=== PATIENT | male | born 1995 | race Caucasian/White ===

== ENCOUNTER 2017-11-16 17:13 | Emergency (ER) | payer SELFPAY ==
[~2017-11-16] VITALS: Ht 182.9 cm; Wt 81.6 kg
[~2017-11-16 17:13] MED LIST: HYDR1TAB PO; KETO10TA77 PO; ONDA-42 SL; TMSL.4C PO
[2017-11-16] MEDS ORDERED: TETANUS,DIPTH,PERTUSS P/F (BOOSTRIX) 0.5 ML VIAL IM STA (18:07)
[2017-11-16] MEDS ORDERED: LACTATED RINGERS 1,000 ML IV ONE (18:07)
[2017-11-16] MEDS ORDERED: methylPREDNISolone 125 MG (Solu-MEDROL) VIAL IVP ONE (18:15)
[2017-11-16] MEDS ORDERED: CLINDAMYCIN INJECTION 900 MG in NS (IVPB) 50 ML IV ONE (18:15)
[2017-11-16 18:28] LABS: BASOPHILS # (AUTO) 0.1 10^3/uL (0.0-0.1); BASOPHILS % (AUTO) 1 % (0-10); EOSINOPHILS # (AUTO) 0.7 10^3/uL (0.0-0.3); EOSINOPHILS % (AUTO) 7 % (0-10); LYMPHOCYTES # (AUTO) 1.9 X 10^3 (1.0-4.0); LYMPHOCYTES % (AUTO) 20 % (12-44); MEAN CORPUSCULAR HEMOGLOBIN 32 PG (25-34); MEAN CORPUSCULAR HGB CONC 35 G/DL (32-36); MEAN CORPUSCULAR VOLUME 92 FL (80-99); MEAN PLATELET VOLUME 10.2 FL (7.4-10.4); MONOCYTES # (AUTO) 1.6 X 10^3 (0.0-1.0); MONOCYTES % (AUTO) 16 % (0-12); NEUTROPHILS # (AUTO) 5.6 X 10^3 (1.8-7.8); NEUTROPHILS % (AUTO) 57 % (42-75); PLATELET COUNT 267 10^3/uL (130-400); RED BLOOD COUNT 4.22 10^6/uL (4.35-5.85); RED CELL DISTRIBUTION WIDTH 12.2 % (10.0-14.5); WHITE BLOOD COUNT 9.9 10^3/uL (4.3-11.0)
[2017-11-16 18:47] LABS: ALANINE AMINOTRANSFERASE 13 U/L (0-55); ALBUMIN 3.8 GM/DL (3.2-4.5); ANION GAP 9 MMOL/L (5-14); ASPARTATE AMINO TRANSFERASE 18 U/L (5-34); BILIRUBIN,TOTAL 0.7 MG/DL (0.1-1.0); BLOOD UREA NITROGEN 10 MG/DL (7-18); BUN/CREATININE RATIO 13; CALCIUM 8.7 MG/DL (8.5-10.1); CARBON DIOXIDE 25 MMOL/L (21-32); CHLORIDE 107 MMOL/L (98-107); CREATININE SERUM 0.78 MG/DL (0.60-1.30); GFR ESTIMATED > 60; GLUCOSE 104 MG/DL (70-105); POTASSIUM 3.9 MMOL/L (3.6-5.0); SODIUM 141 MMOL/L (135-145); TOTAL PROTEIN 6.7 GM/DL (6.4-8.2); hs C REACTIVE PROTEIN 1.81 MG/DL (0.00-0.50)
[2017-11-16 18:48] LABS: ERYTHROCYTE SEDIMENTATION RATE 6 MM/HR (0-15)
--- NOTE | 2017-11-16 19:15 | Diagnostic Imaging Report ---
INDICATION: Possible spider bite. EXAMINATION: Right lower extremity ultrasound. FINDINGS: No fluid collection or abscess. No identifiable foreign body. IMPRESSION: Negative. Dictated by: Dictated on workstation # [id number]
--- NOTE | 2017-11-16 19:20 | ED Integumentary General ---
General Chief Complaint: Skin/Wound Problems Stated Complaint: SPIDER BITE Nursing Triage Note: PT REPORTS AREA TO POSTERIOR R CALF X 3 DAYS WITH WORSENING REDNESS, WARMTH AND SWELLING TODAY. Source: patient History of Present Illness Time seen by provider: 18:00 Initial Comments SENT HERE FROM [facility] C/O AREA OF REDNESS AND TENDERNESS AND SWELLING TO RIGHT CALF FOR A FEW DAYS, AND IS GETTING WORSE NO FEVER NO DRAINAGE NO STREAKS NO HISTORY OF SIMILAR NO KNOWN INJURY, BUT PT HAS MULTIPLE SORES TO LOWER LEGS BILATERALLY, BUT WORSE ON RIGHT. PCP: FAMILY GOES TO [facility] Allergies and Home Medications Allergies Coded Allergies: No Known Drug Allergies (Unverified , 05/06/14) Home Medications Ketorolac Tromethamine 10 Mg Tablet, 10 MG PO Q6H, #20 Prescribed by: MIGUEL ÁNGEL WAGNER on 05/01/152117 Mupirocin Calcium 15 Gm Cream..g., 15 GM TP BID, #22 Prescribed by: MIGUEL ÁNGEL WAGNER on 11/16/171935 Naproxen 500 Mg Tablet, 500 MG PO BID, #20 Prescribed by: MIGUEL ÁNGEL WAGNER on 11/16/171934 Ondansetron Hcl 4 Mg Tab, 4 MG SL Q4H, #5 FOR NAUSEA AND VOMITING Prescribed by: MIGUEL ÁNGEL WAGNER on 05/01/152117 Sulfamethoxazole/Trimethoprim 1 Each Tablet, 2 EACH PO BID, #40 Prescribed by: MIGUEL ÁNGEL WAGNER on 11/16/171934 Tamsulosin Hcl 0.4 Mg Cap, 0.4 MG PO DAILY, #10 Prescribed by: MIGUEL ÁNGEL WAGNER on 05/01/152117 Constitutional: see HPI Respiratory: no symptoms reported Cardiovascular: no symptoms reported Genitourinary: no symptoms reported Musculoskeletal: see HPI Skin: see HPI Psychiatric/Neurological: No Symptoms Reported, Denies Numbness, Denies Paresthesia, Denies Tingling, Denies Weakness Endocrine: No Symptoms Reported Hematologic/Lymphatic: No Symptoms Reported Past Vyhckit-Nfnufn-Qidfsh Hx Patient Social History Alcohol Use: Occasionally Uses 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, 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, THC Smoking Status: Current Everyday Smoker (1/2-1 PPD) Type Used: Cigarettes 2nd Hand Smoke Exposure: No Recent Foreign Travel: No Contact w/Someone Who Travel: No Recent Infectious Disease Expo: No Recent Hopitalizations: No Physical Abuse: No Sexual Abuse: No Immunizations Up To Date Tetanus Booster (TDap): Unknown Surgeries History of Surgeries: No Respiratory History of Respiratory Disorde: No Cardiovascular History of Cardiac Disorders: No Neurological History of Neurological Disord: Yes Neurological Disorders: Concussion Reproductive System Hx Reproductive Disorders: No Sexually Transmitted Disease: No Genitourinary History of Genitourinary Disor: No Gastrointestinal History of Gastrointestinal Di: No Musculoskeletal History of Musculoskeletal Dis: No Endocrine History of Endocrine Disorders: No HEENT History of HEENT Disorders: No Cancer History of Cancer: No Psychosocial History of Psychiatric Problem: No Suicide Risk Score: 0 Integumentary History of Skin or Integumenta: No Blood Transfusions History of Blood Disorders: No Physical Exam Vital Signs Vital Sign - Last 12Hours 11/16/17 17:56 Temp 99.2 Pulse 87 Resp 16 B/P (MAP) 123/78 (93) Pulse Ox 98 O2 Delivery Room Air Capillary Refill : Less Than 3 Seconds General Appearance: WD/WN, no apparent distress, other (DIRTY, VERY MALODOROUS) Cardiovascular: normal peripheral pulses, regular rate, rhythm, no murmur Respiratory: normal breath sounds Extremities: no pedal edema, normal capillary refill, other (RIGHT LOWER LEG WITH MULTIPLE SORES/SCABBED WOUNDS--SEVERAL WITH MILD SURROUNDING ERYTHEMA/ INDURATION. HAS 15 X 15 CM AREA OF ERYTHEMA, WARMTH, INDURATION, SWELLING AND MARKED TENDERNESS TO RIGHT CALF. NO AREAS OF FLUCTUANCE, NO DRAINAGE, NO STREAKS. HAS MULTIPLE TINY PUSTULES TO AREA--ALL APPEAR TO BE AT BASE OF HAIR FOLLICLES. 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 ) Progress/Results/Core Measures Results/Orders Lab Results Laboratory Tests Test 11/16/17 18:15 Range/Units White Blood Count 9.9 4.3-11.0 10^3/uL Red Blood Count 4.22 L 4.35-5.85 10^6/uL Hemoglobin 13.5 13.3-17.7 G/DL Hematocrit 39 L 40-54 % Mean Corpuscular Volume 92 80-99 FL Mean Corpuscular Hemoglobin 32 25-34 PG Mean Corpuscular Hemoglobin Concent 35 32-36 G/DL Red Cell Distribution Width 12.2 10.0-14.5 % Platelet Count 267 130-400 10^3/uL Mean Platelet Volume 10.2 7.4-10.4 FL Neutrophils (%) (Auto) 57 42-75 % Lymphocytes (%) (Auto) 20 12-44 % Monocytes (%) (Auto) 16 H 0-12 % Eosinophils (%) (Auto) 7 0-10 % Basophils (%) (Auto) 1 0-10 % Neutrophils # (Auto) 5.6 1.8-7.8 X 10^3 Lymphocytes # (Auto) 1.9 1.0-4.0 X 10^3 Monocytes # (Auto) 1.6 H 0.0-1.0 X 10^3 Eosinophils # (Auto) 0.7 H 0.0-0.3 10^3/uL Basophils # (Auto) 0.1 0.0-0.1 10^3/uL Erythrocyte Sedimentation Rate 6 0-15 MM/HR Sodium Level 141 135-145 MMOL/L Potassium Level 3.9 3.6-5.0 MMOL/L Chloride Level 107 98-107 MMOL/L Carbon Dioxide Level 25 21-32 MMOL/L Anion Gap 9 5-14 MMOL/L Blood Urea Nitrogen 10 7-18 MG/DL Creatinine 0.78 0.60-1.30 MG/DL Estimat Glomerular Filtration Rate > 60 BUN/Creatinine Ratio 13 Glucose Level 104 70-105 MG/DL Lactic Acid Level 1.23 0.50-2.00 MMOL/L Calcium Level 8.7 8.5-10.1 MG/DL Total Bilirubin 0.7 0.1-1.0 MG/DL Aspartate Amino Transf (AST/SGOT) 18 5-34 U/L Alanine Aminotransferase (ALT/SGPT) 13 0-55 U/L Alkaline Phosphatase 93 40-136 U/L C-Reactive Protein High Sensitivity 1.81 H 0.00-0.50 MG/DL Total Protein 6.7 6.4-8.2 GM/DL Albumin 3.8 3.2-4.5 GM/DL My Orders Orders - BERNARD,MIGUEL ÁNGEL K DO Saline Lock/Iv-Start (11/16/17 18:07) Cbc With Automated Diff (11/16/17 18:07) Comprehensive Metabolic Panel (11/16/17 18:07) Hs C Reactive Protein (11/16/17 18:07) Erythrocyte Sedimentation Rate (11/16/17 18:07) Lactic Acid Analyzer (11/16/17 18:07) Blood Culture (11/16/17 18:07) Us Right Low Ext Nonvasc 00244 (11/16/17 18:07) Saline Lock/Iv-Start (11/16/17 18:07) Lactated Ringers (Lr 1000 Ml Iv Solution (11/16/17 18:07) Dipht,Pertuss(Acell),Tet Adult (Boostrix (11/16/17 18:07) Clindamycin Injection (Cleocin Injection (11/16/17 18:15) Methylprednisolone Sod Succ (Solu-Medrol (11/16/17 18:15) Wound Culture (11/16/17 19:26) Rx-Mupirocin 2% Oint (Rx-Bactroban) (11/16/17 19:36) Rx-Trimeth/Sulfameth Ds Tab (Rx-Bactrim/ (11/16/17 19:36) Rx-Naproxen (Rx-Naprosyn) (11/16/17 19:36) Wound Dressing-Ed (11/16/17 19:36) Rx-Mupirocin 2% Oint (Rx-Bactroban) (11/16/17 20:07) Rx-Trimeth/Sulfameth Ds Tab (Rx-Bactrim/ (11/16/17 20:07) Rx-Naproxen (Rx-Naprosyn) (11/16/17 20:07) Medications Given in ED Current Medications Medications Dose Ordered Sig/Jeromy Route Start Time Stop Time Status Last Admin Dose Admin Clindamycin Phosphate 900 mg/ Sodium Chloride 56 ml @ 100 mls/hr ONCE ONCE IV 11/16/17 18:15 11/16/17 18:49 DC 11/16/17 19:16 100 MLS/HR Lactated Ringer's 1,000 ml @ 0 mls/hr Q0M ONCE IV 11/16/17 18:07 11/16/17 18:10 DC 11/16/17 18:27 0 MLS/HR Methylprednisolone Sodium Succinate 125 mg ONCE ONCE IVP 11/16/17 18:15 11/16/17 18:16 DC 11/16/17 18:27 125 MG Vital Signs/I&O Vital Sign - Last 12Hours 11/16/17 11/16/17 17:56 20:21 Temp 99.2 99.0 Pulse 87 83 Resp 16 16 B/P (MAP) 123/78 (93) Pulse Ox 98 97 O2 Delivery Room Air Room Air Intake and Output 11/17/17 00:00 Intake Total 1056 ml Balance 1056 ml Blood Pressure Mean: 93 Progress Note : Progress Note FEW PUSTULES RUPTURED WITH 25 G NEEDLE TO OBTAIN CULTURE Diagnostic Imaging Comments ULTRASOUND--NO FLUID COLLECTION, NO ABSCESS, NO FOREIGN BODY--PER RADIOLOGIST REPORT @ 1920 Reviewed: Reviewed by Me Departure Impression Impression: Primary Impression: CELLULITIS RIGHT CALF Additional Impression: SUSPECTED MRSA Disposition: HOME, SELF-CARE Condition: Stable Departure-Patient Inst. Referrals: NO,LOCAL PHYSICIAN (PCP/Family) Primary Care Physician Patient Instructions: Cellulitis (Skin Infection), Adult (DC), Methicillin- Resistant Staphylococcus aureus (MRSA), MRSA (DC) Add. Discharge Instructions: CLEAN AREAS 3 TIMES A DAY WITH ANTIBACTERIAL SOAP AND WATER, APPLY ANTIBIOTIC OINTMENT AND FRESH DRESSING AFTER EACH CLEANING ALTERNATE ICE AND HEAT TO SORE AREA AT 20 MINUTE INTERVALS ELEVATE LEG MUCH POSSIBLE FOLLOW UP WITH [facility] [place] [facility] TOMORROW FOR FURTHER CARE All discharge instructions reviewed with patient and/or family. Voiced understanding. Scripts Mupirocin Calcium (Bactroban) 15 Gm Cream..g. 15 GM TP BID, #22 TUBE Prov: MIGUEL ÁNGEL WAGNER DO 11/16/17 Naproxen (Naproxen) 500 Mg Tablet 500 MG PO BID, #20 TAB Prov: MIGUEL ÁNGEL WAGNER DO 11/16/17 Sulfamethoxazole/Trimethoprim (Bactrim Ds Tablet) 1 Each Tablet 2 EACH PO BID, #40 TAB Prov: MIGUEL ÁNGEL WAGNER DO 11/16/17 MIGUEL ÁNGEL WAGNER DO Nov 16, 2017 19:20
[2017-11-16] MEDS ORDERED: SULF1TAB35 PO (19:35)
[2017-11-16] MEDS ORDERED: NAPR500T4 PO (19:35)
[2017-11-16] MEDS ORDERED: MUPI15CR TP (19:36)
[2017-11-16] MEDS ORDERED: RX-TRIMETH/SULFA. 160-800 MG (BACTRIM DS) TAB PPK#2 PO STA (19:36)
[2017-11-16] MEDS ORDERED: RX-MUPIROCIN (BACTROBAN) 2% OINT 22 GM TUBE TOP STA (19:36)
[2017-11-16] MEDS ORDERED: RX-NAPROXEN (NAPROSYN) 250 MG TAB PPK#4 PO STA (19:36)
[2017-11-16] MEDS ORDERED: RX-NAPROXEN (NAPROSYN) 250 MG TAB PPK#4 PO ONE (20:07)
[2017-11-16] MEDS ORDERED: RX-TRIMETH/SULFA. 160-800 MG (BACTRIM DS) TAB PPK#2 PO ONE (20:07)
[2017-11-16] MEDS ORDERED: RX-MUPIROCIN (BACTROBAN) 2% OINT 22 GM TUBE ONE (20:07)
[2017-11-16 20:21] VITALS: BP 114/68
== END 2017-11-16 20:21 | disposition home or self-care (01) ==
LOC: EDUNIT# 17:13 → ER 17:15
DX: L03.115 Cellulitis of right lower limb (principal); Z23 Encounter for immunization; F17.210 Nicotine dependence, cigarettes, uncomplicated; Z87.821 Personal history of retained foreign body fully removed
CPT/HCPCS: 36415; 76881; 80053; 83605; 85025; 85652; 86141; 87040; 87070; 87186; 87205; 90715

== ENCOUNTER 2017-12-01 22:01 | Emergency (ER) | payer SELFPAY ==
[~2017-12-01] VITALS: Ht 182.9 cm; Wt 81.6 kg
[~2017-12-01 22:01] MED LIST changes: +MUPI15CR TP; +NAPR500T4 PO; +SULF1TAB35 PO
--- OUTSIDE RECORDS SUMMARY | 2017-12-01 22:06 | XMS REPORT | Continuity of Care Document ---
Author Author [facility] Organization [facility] Address Unknown Phone Unavailable Allergies Active Description Code Type Severity Reaction Onset Reported/Identified Relationship to Patient Clinical Status Yes No Known Drug Allergies [id number] Drug Allergy Unknown N/A 05/06/2014 Medications There is no data. Problems Date Dx Coded Attending Type Code Diagnosis Diagnosed By 05/07/2014 EREN CARABALLO APRN Ot 803.20 05/07/2014 EREN CARABALLO APRN Ot E968.9 05/01/2015 MIGUEL ÁNGEL WAGNER DO Ot 593.4 URETERIC OBSTRUCTION NEC 05/01/2015 MIGUEL ÁNGEL WAGNER DO Ot 724.2 LUMBAGO Procedures There is no data. Results Test Result Range Complete blood count (CBC) with automated white blood cell (WBC) differential - 11/16/17 18:15 Blood leukocytes automated count (number/volume) 9.9 10*3/uL 4.3-11.0 Blood erythrocytes automated count (number/volume) 4.22 10*6/uL 4.35-5.85 Venous blood hemoglobin measurement (mass/volume) 13.5 g/dL 13.3-17.7 Blood hematocrit (volume fraction) 39 % 40-54 Automated erythrocyte mean corpuscular volume 92 [foz_us] 80-99 Automated erythrocyte mean corpuscular hemoglobin (mass per erythrocyte) 32 pg 25-34 Automated erythrocyte mean corpuscular hemoglobin concentration measurement ( mass/volume) 35 g/dL 32-36 Automated erythrocyte distribution width ratio 12.2 % 10.0-14.5 Automated blood platelet count (count/volume) 267 10*3/uL 130-400 Automated blood platelet mean volume measurement 10.2 [foz_us] 7.4-10.4 Automated blood neutrophils/100 leukocytes 57 % 42-75 Automated blood lymphocytes/100 leukocytes 20 % 12-44 Blood monocytes/100 leukocytes 16 % 0-12 Automated blood eosinophils/100 leukocytes 7 % 0-10 Automated blood basophils/100 leukocytes 1 % 0-10 Blood neutrophils automated count (number/volume) 5.6 10*3 1.8-7.8 Blood lymphocytes automated count (number/volume) 1.9 10*3 1.0-4.0 Blood monocytes automated count (number/volume) 1.6 10*3 0.0-1.0 Automated eosinophil count 0.7 10*3/uL 0.0-0.3 Automated blood basophil count (count/volume) 0.1 10*3/uL 0.0-0.1 Blood lactic acid measurement (moles/volume) - 11/16/17 18:15 Blood lactic acid measurement (moles/volume) 1.23 mmol/L 0.50-2.00 Comprehensive metabolic panel - 11/16/17 18:15 Serum or plasma sodium measurement (moles/volume) 141 mmol/L 135-145 Serum or plasma potassium measurement (moles/volume) 3.9 mmol/L 3.6-5.0 Serum or plasma chloride measurement (moles/volume) 107 mmol/L 98-107 Carbon dioxide 25 mmol/L 21-32 Serum or plasma anion gap determination (moles/volume) 9 mmol/L 5-14 Serum or plasma urea nitrogen measurement (mass/volume) 10 mg/dL 7-18 Serum or plasma creatinine measurement (mass/volume) 0.78 mg/dL 0.60-1.30 Serum or plasma urea nitrogen/creatinine mass ratio 13 NRG Serum or plasma creatinine measurement with calculation of estimated glomerular filtration rate > NRG Serum or plasma glucose measurement (mass/volume) 104 mg/dL 70-105 Serum or plasma calcium measurement (mass/volume) 8.7 mg/dL 8.5-10.1 Serum or plasma total bilirubin measurement (mass/volume) 0.7 mg/dL 0.1-1.0 Serum or plasma alkaline phosphatase measurement (enzymatic activity/volume) 93 U/L 40-136 Serum or plasma aspartate aminotransferase measurement (enzymatic activity/ volume) 18 U/L 5-34 Serum or plasma alanine aminotransferase measurement (enzymatic activity/volume ) 13 U/L 0-55 Serum or plasma protein measurement (mass/volume) 6.7 g/dL 6.4-8.2 Serum or plasma albumin measurement (mass/volume) 3.8 g/dL 3.2-4.5 Serum or plasma C reactive protein measurement (mass/volume) - 11/16/17 18:15 Serum or plasma C reactive protein measurement (mass/volume) 1.81 mg /dL 0.00-0.50 Erythrocyte sedimentation rate by westergren method - 11/16/17 18:15 Erythrocyte sedimentation rate by westergren method 6 mm 0-15 Bacterial blood culture - 11/16/17 18:15 Bacterial blood culture NG NRG Bacterial blood culture - 11/16/17 18:34 Bacterial blood culture NG NRG Gram stain microscopy - 11/16/17 19:40 GRAM STAIN RESULT FEW GRAM POSITIVE COCCI RESEMBLING STAPH NRG Bacteria identification in wound by culture - 11/16/17 19:40 Bacteria identification in wound by culture [id number] NRG FREE TEXT EXTERNAL SENSITIVITY REPORTED 11/18/17 7:35 NRG QUANTITY OF GROWTH Moderate Growth NRG Bacterial susceptibility panel - 11/16/17 19:40 Oxacillin susceptibility test by minimum inhibitory concentration < = NRG Gentamicin susceptibility test by minimum inhibitory concentration < = NRG Clindamycin susceptibility test by minimum inhibitory concentration R NRG Erythromycin susceptibility test by minimum inhibitory concentration >= NRG Trimethoprim/sulfamethoxazole susceptibility test by minimum inhibitoryconcentration S NRG Vancomycin susceptibility test by minimum inhibitory concentration 1 NRG Levofloxacin susceptibility test by minimum inhibitory concentration <= NRG Rifampin susceptibility test by minimum inhibitory concentration <= NRG Tetracycline susceptibility test by minimum inhibitory concentration <= NRG Encounters ACCT No. Visit Date/Time Discharge Status Pt. Type Provider Facility Loc./Unit Complaint [id number] 11/16/2017 17:15:00 11/16/2017 20:21:00 DIS Emergency MIGUEL ÁNGEL WAGNER DO [facility] ER SPIDER BITE [id number] 05/01/2015 18:36:00 05/01/2015 21:58:00 DIS Emergency MIGUEL ÁNGEL WAGNER DO [facility] ER LOWER R SIDE BACK PAIN [id number] 05/06/2014 21:33:00 05/07/2014 00:01:00 DIS Emergency EREN CARABALLO APRN [facility] ER
[2017-12-01 22:27] LABS: BASOPHILS # (AUTO) 0.1 10^3/uL (0.0-0.1); BASOPHILS % (AUTO) 1 % (0-10); EOSINOPHILS # (AUTO) 0.2 10^3/uL (0.0-0.3); EOSINOPHILS % (AUTO) 3 % (0-10); HEMATOCRIT 42 % (40-54); HEMOGLOBIN 14.6 G/DL (13.3-17.7); LYMPHOCYTES # (AUTO) 1.6 X 10^3 (1.0-4.0); LYMPHOCYTES % (AUTO) 23 % (12-44); MEAN CORPUSCULAR HEMOGLOBIN 31 PG (25-34); MEAN CORPUSCULAR HGB CONC 35 G/DL (32-36); MEAN CORPUSCULAR VOLUME 88 FL (80-99); MEAN PLATELET VOLUME 10.4 FL (7.4-10.4); MONOCYTES % (AUTO) 14 % (0-12); NEUTROPHILS # (AUTO) 4.2 X 10^3 (1.8-7.8); NEUTROPHILS % (AUTO) 60 % (42-75); PLATELET COUNT 220 10^3/uL (130-400); RED BLOOD COUNT 4.74 10^6/uL (4.35-5.85); RED CELL DISTRIBUTION WIDTH 12.2 % (10.0-14.5)
[2017-12-01] MEDS ORDERED: ANTACID SUSP 30 ML UDC (MYLANTA) PO ONE (22:30)
[2017-12-01] MEDS ORDERED: NS IV 1000 ML 1,000 ML IV SCH (22:30)
[2017-12-01] MEDS ORDERED: ONDANSETRON 4 MG/2 ML (SDV) Z0FRAN IVP ONE (22:30)
[2017-12-01] MEDS ORDERED: LIDOCAINE 2% VISCOUS 15 ML UDC PO ONE (22:30)
--- NOTE | 2017-12-01 22:32 | ED Abdominal Pain ---
General Chief Complaint: Abdominal/GI Problems Stated Complaint: DIZZINESS,VOMITING,ABD PAIN Source of Information: Patient Exam Limitations: No Limitations History of Present Illness Time Seen By Provider: 22:18 Initial Comments Epigastric abdominal pain, blood-tinged vomit, nausea that began yesterday. No vomiting. He just finished Bactrim today which was treating a right leg cellulitis diagnosed here about 2 weeks ago. Timing/Duration: 1-2 Days Severity/Quality: Moderate Location: Epigastric Radiation: No Radiation Activities at Onset: None Allergies and Home Medications Allergies Coded Allergies: No Known Drug Allergies (Unverified , 05/06/14) Home Medications Ketorolac Tromethamine 10 Mg Tablet, 10 MG PO Q6H, #20 Prescribed by: MIGUEL ÁNGEL WAGNER on 05/01/152117 Mupirocin Calcium 15 Gm Cream..g., 15 GM TP BID, #22 Prescribed by: MIGUEL ÁNGEL WAGNER on 11/16/171935 Naproxen 500 Mg Tablet, 500 MG PO BID, #20 Prescribed by: MIGUEL ÁNGEL WAGNER on 11/16/171934 Ondansetron Hcl 4 Mg Tab, 4 MG SL Q4H, #5 FOR NAUSEA AND VOMITING Prescribed by: MIGUEL ÁNGEL WAGNER on 05/01/152117 Sulfamethoxazole/Trimethoprim 1 Each Tablet, 2 EACH PO BID, #40 Prescribed by: MIGUEL ÁNGEL WAGNER on 11/16/171934 Tamsulosin Hcl 0.4 Mg Cap, 0.4 MG PO DAILY, #10 Prescribed by: MIGUEL ÁNGEL WAGNER on 05/01/152117 Review of Systems Constitutional: see HPI EENTM: No Symptoms Reported Respiratory: No Symptoms Reported Cardiovascular: No Symptoms Reported Gastrointestinal: See HPI, Abdominal Pain, Nausea, Vomiting Genitourinary: No Symptoms Reported Musculoskeletal: no symptoms reported Skin: no symptoms reported Past Figpqqt-Tpgzpp-Ydjheb Hx Patient Social History Alcohol Use: Denies Use Recreational Drug Use: No Drug of Choice: +IV METH USE, THC Smoking Status: Current Everyday Smoker Type Used: Cigarettes 2nd Hand Smoke Exposure: No Recent Foreign Travel: No Contact w/Someone Who Travel: No Recent Hopitalizations: No Physical Abuse: No Sexual Abuse: No Mistreated: No Fear: No Immunizations Up To Date Tetanus Booster (TDap): Unknown Surgeries History of Surgeries: No Respiratory History of Respiratory Disorde: No Cardiovascular History of Cardiac Disorders: No Neurological History of Neurological Disord: Yes Neurological Disorders: Concussion Reproductive System Hx Reproductive Disorders: No Sexually Transmitted Disease: No Genitourinary History of Genitourinary Disor: No Gastrointestinal History of Gastrointestinal Di: No Musculoskeletal History of Musculoskeletal Dis: No Endocrine History of Endocrine Disorders: No HEENT History of HEENT Disorders: No Cancer History of Cancer: No Psychosocial History of Psychiatric Problem: No Suicide Risk Score: 1 Integumentary History of Skin or Integumenta: No Blood Transfusions History of Blood Disorders: No Physical Exam Vital Signs VS - Last 72 Hours, by Label 12/01/17 22:10 Temp 97.8 Pulse 83 Resp 18 B/P (MAP) 127/82 (97) Pulse Ox 99 O2 Delivery Room Air Capillary Refill : General Appearance: WD/WN, no apparent distress HEENT: PERRL/EOMI, normal ENT inspection Neck: non-tender, full range of motion Respiratory: no respiratory distress, no accessory muscle use Cardiovascular: regular rate, rhythm, no murmur Gastrointestinal: normal bowel sounds, non tender, soft, No tenderness Extremities: normal range of motion, non-tender Neurologic/Psychiatric: alert, normal mood/affect, oriented x 3 Skin: normal color, warm/dry Progress/Results/Core Measures Results/Orders Lab Results Laboratory Tests Test 12/01/17 22:15 12/01/17 22:34 Range/Units White Blood Count 7.0 4.3-11.0 10^3/uL Red Blood Count 4.74 4.35-5.85 10^6/uL Hemoglobin 14.6 13.3-17.7 G/DL Hematocrit 42 40-54 % Mean Corpuscular Volume 88 80-99 FL Mean Corpuscular Hemoglobin 31 25-34 PG Mean Corpuscular Hemoglobin Concent 35 32-36 G/DL Red Cell Distribution Width 12.2 10.0-14.5 % Platelet Count 220 130-400 10^3/uL Mean Platelet Volume 10.4 7.4-10.4 FL Neutrophils (%) (Auto) 60 42-75 % Lymphocytes (%) (Auto) 23 12-44 % Monocytes (%) (Auto) 14 H 0-12 % Eosinophils (%) (Auto) 3 0-10 % Basophils (%) (Auto) 1 0-10 % Neutrophils # (Auto) 4.2 1.8-7.8 X 10^3 Lymphocytes # (Auto) 1.6 1.0-4.0 X 10^3 Monocytes # (Auto) 1.0 0.0-1.0 X 10^3 Eosinophils # (Auto) 0.2 0.0-0.3 10^3/uL Basophils # (Auto) 0.1 0.0-0.1 10^3/uL Sodium Level 143 135-145 MMOL/L Potassium Level 3.8 3.6-5.0 MMOL/L Chloride Level 104 98-107 MMOL/L Carbon Dioxide Level 27 21-32 MMOL/L Anion Gap 12 5-14 MMOL/L Blood Urea Nitrogen 15 7-18 MG/DL Creatinine 0.79 0.60-1.30 MG/DL Estimat Glomerular Filtration Rate > 60 BUN/Creatinine Ratio 19 Glucose Level 100 70-105 MG/DL Calcium Level 8.9 8.5-10.1 MG/DL Total Bilirubin 0.9 0.1-1.0 MG/DL Aspartate Amino Transf (AST/SGOT) 56 H 5-34 U/L Alanine Aminotransferase (ALT/SGPT) 33 0-55 U/L Alkaline Phosphatase 92 40-136 U/L Total Protein 7.1 6.4-8.2 GM/DL Albumin 4.0 3.2-4.5 GM/DL My Orders Orders - EREN CARABALLO APRN Antacid Suspension (Mylanta Suspension (12/01/17 22:30) Lidocaine 2% Viscous 15 Ml (Xylocaine Vi (12/01/17 22:30) Ondansetron Injection (Zofran Injectio (12/01/17 22:30) Ns Iv 1000 Ml (Sodium Chloride 0.9%) (12/01/17 22:30) Saline Lock/Iv-Start (12/01/17 22:16) Cbc With Automated Diff (12/01/17 22:16) Comprehensive Metabolic Panel (12/01/17 22:16) Ua Culture If Indicated (12/01/17 22:16) Drug Screen Stat (Urine) (12/01/17 22:16) Rx-Ondansetron Po (Rx-Zofran Po) (12/01/17 22:41) Medications Given in ED Current Medications Medications Dose Ordered Sig/Jeromy Route Start Time Stop Time Status Last Admin Dose Admin Al Hydrox/Mg Hydrox/Simethicone 30 ml ONCE ONCE PO 12/01/17 22:30 12/01/17 22:31 DC 12/01/17 22:36 30 ML Lidocaine HCl 15 ml ONCE ONCE PO 12/01/17 22:30 12/01/17 22:31 DC 12/01/17 22:36 15 ML Ondansetron HCl 4 mg ONCE ONCE IVP 12/01/17 22:30 12/01/17 22:31 DC 12/01/17 22:36 4 MG Vital Signs/I&O Vital Sign - Last 12Hours 12/01/17 22:10 Temp 97.8 Pulse 83 Resp 18 B/P (MAP) 127/82 (97) Pulse Ox 99 O2 Delivery Room Air Departure Impression Impression: Primary Impression: Nausea and vomiting Disposition: HOME, SELF-CARE Condition: Stable Departure-Patient Inst. Decision time for Depature: 22:41 Referrals: NO,LOCAL PHYSICIAN (PCP/Family) Primary Care Physician Patient Instructions: Nausea and Vomiting, Adult Add. Discharge Instructions: 1. Clear liquids only for the next 12 hours. This will be Jell-O, Gatorade, chicken broth or anything that you can see through. Take nausea medication as needed. Follow-up with your doctor later this week. Take acid reducers as directed as well. All discharge instructions reviewed with patient and/or family. Voiced understanding. Scripts Omeprazole (Omeprazole) 40 Mg Capsule. 40 MG PO DAILY, #30 CAP Prov: EREN CARABALLO APRN 12/01/17 EREN CARABALLO APRN Dec 01, 2017 22:32
[2017-12-01] MEDS ORDERED: RX-ONDANSETRON 4 MG ODT (ZOFRAN) PPK #4 PO STA (22:41)
[2017-12-01 22:46] LABS: CARBON DIOXIDE 27 MMOL/L (21-32); CHLORIDE 104 MMOL/L (98-107); CREATININE SERUM 0.79 MG/DL (0.60-1.30); POTASSIUM 3.8 MMOL/L (3.6-5.0); SODIUM 143 MMOL/L (135-145)
[2017-12-01 22:47] LABS: ALANINE AMINOTRANSFERASE 33 U/L (0-55); ALKALINE PHOSPHATASE 92 U/L (40-136); BILIRUBIN,TOTAL 0.9 MG/DL (0.1-1.0); BUN/CREATININE RATIO 19; CALCIUM 8.9 MG/DL (8.5-10.1); GFR ESTIMATED > 60; GLUCOSE 100 MG/DL (70-105); TOTAL PROTEIN 7.1 GM/DL (6.4-8.2)
[2017-12-01 22:48] LABS: BILIRUBIN,URINE 1+ (NEGATIVE); CLARITY,URINE CLEAR; COLOR,URINE AMBER; GLUCOSE, URINE (UA) NEGATIVE (NEGATIVE); KETONES,URINE 1+ (NEGATIVE); LEUKOCYTE ESTERASE ,URINE 1+ (NEGATIVE); NITRITE,URINE NEGATIVE (NEGATIVE); PH,URINE 7 (5-9); PROTEIN,URINE 2+ (NEGATIVE); UROBILINOGEN,URINE 8 MG/DL (NORMAL)
[2017-12-01] MEDS ORDERED: OMEP40CA36 PO (22:56)
[2017-12-01 23:01] LABS: AMPHETAMINE SCREEN, URINE NEGATIVE (NEGATIVE); BARBITURATE SCREEN URINE NEGATIVE (NEGATIVE); BENZODIAZEPINES SCREEN URINE POSITIVE (NEGATIVE); CANNABINOID SCREEN, URINE NEGATIVE (NEGATIVE); COCAINE SCREEN URINE NEGATIVE (NEGATIVE); METHADONE STAT NEGATIVE (NEGATIVE); METHAMPHETAMINE SCREEN URINE S NEGATIVE (NEGATIVE); OPIATE SCREEN URINE NEGATIVE (NEGATIVE); OXYCODONE STAT NEGATIVE (NEGATIVE); PROPOXYPHENE STAT NEGATIVE (NEGATIVE); TRICYCLIC ANTIDEPRESSANTS SCRE NEGATIVE (NEGATIVE)
[2017-12-01 23:15] VITALS: BP 120/70
== END 2017-12-01 23:15 | disposition home or self-care (01) ==
LOC: EDUNIT# 22:01 → ER 22:03
DX: R11.2 Nausea with vomiting, unspecified (principal); F15.10 Other stimulant abuse, uncomplicated; F17.210 Nicotine dependence, cigarettes, uncomplicated; F12.10 Cannabis abuse, uncomplicated
CPT/HCPCS: 36415; 80053; 80306; 81000; 85025

== ENCOUNTER 2020-08-18 18:20 | Emergency (ER) | payer SELFPAY ==
[~2020-08-18] VITALS: Ht 182.8 cm; Wt 95.2 kg
[~2020-08-18 18:20] MED LIST changes: +NAPR-915 PO; -NAPR500T4 PO; +OMEP40CA27 PO
--- NOTE | 2020-08-18 18:53 | ED GI ---
General Chief Complaint: Abdominal/GI Problems Stated Complaint: NAUSEA/VOMITING/COVID SYMPTOMS Source of Information: Patient Exam Limitations: No Limitations History of Present Illness Date Seen by Provider: Aug 18, 2020 Time Seen by Provider: 18:51 Initial Comments To ER with reports of nausea vomiting and constipation as well as yellowish eyes. He works for [employer] and his boss noticed the yellow eyes and referred him to the emergency room. He denies cough or shortness of breath. Denies any sore throat fevers or chills. He was seen at [facility] 3 days ago and was given a prescription for Zofran. No abdominal pain. He did have a fever up to 101 at the onset of this illness over a week ago. He has a family history of liver disease but nothing personal. He is not sure what exactly the liver disorder is. He does drink alcohol in the form of whiskey or vodka couple of times a month but not daily he assures me. 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 Timing/Duration: 1 Week Severity/Quality: Other (denies abdominal pain) Radiation: No Radiation Activities at Onset: None Associated Symptoms: Denies Symptoms Allergies and Home Medications Allergies Coded Allergies: No Known Drug Allergies (Unverified , 05/06/14) Home Medications Ketorolac Tromethamine 10 Mg Tablet, 10 MG PO Q6H Prescribed by: MIGUEL ÁNGEL WAGNRE on 05/01/152117 Mupirocin Calcium 15 Gm Cream..g., 15 GM TP BID Prescribed by: MIGUEL ÁNGEL WAGNER on 11/16/171935 Naproxen 500 Mg Tablet, 500 MG PO BID Prescribed by: MIGUEL ÁNGEL WAGNER on 11/16/171934 Omeprazole 40 Mg Capsule.dr, 40 MG PO DAILY Prescribed by: EREN CARABALLO on 12/01/172255 Ondansetron Hcl 4 Mg Tab, 4 MG SL Q4H FOR NAUSEA AND VOMITING Prescribed by: MIGUEL ÁNGEL WAGNER on 05/01/152117 Sulfamethoxazole/Trimethoprim 1 Each Tablet, 2 EACH PO BID Prescribed by: MIGUEL ÁNGEL WAGNER on 11/16/171934 Tamsulosin Hcl 0.4 Mg Cap, 0.4 MG PO DAILY Prescribed by: MIGUEL ÁNGEL WAGNER on 05/01/152117 Patient Home Medication List Home Medication List Reviewed: Yes Review of Systems Review of Systems Constitutional: see HPI EENTM: No Symptoms Reported Respiratory: No Symptoms Reported Cardiovascular: No Symptoms Reported Gastrointestinal: See HPI Genitourinary: No Symptoms Reported Musculoskeletal: no symptoms reported Skin: no symptoms reported Psychiatric/Neurological: No Symptoms Reported Endocrine: No Symptoms Reported Hematologic/Lymphatic: No Symptoms Reported Past Sgbecnu-Yswzkr-Rvntfn Hx Patient Social History Drug of Choice: +IV METH USE, THC Type Used: Cigarettes 2nd Hand Smoke Exposure: No Recent Hopitalizations: No Immunizations Up To Date Tetanus Booster (TDap): Unknown Past Medical History Surgeries: No Respiratory: No Cardiac: No Neurological: Yes Concussion Reproductive Disorders: No Sexually Transmitted Disease: No Genitourinary: No Gastrointestinal: No Musculoskeletal: No Endocrine: No HEENT: No Cancer: No Psychosocial: No Integumentary: No Blood Disorders: No Physical Exam Vital Signs Vital Signs - First Documented 08/18/20 18:40 Temp 37.3 Pulse 121 Resp 20 B/P (MAP) 103/73 (83) Pulse Ox 99 O2 Delivery Room Air Capillary Refill : Height/Weight/BMI Height: 6'0" Weight: 180lbs. oz. 81.781594tl; 25.10 BMI Method:Stated General Appearance: WD/WN, no apparent distress HEENT: PERRL/EOMI, other (Scleral icterus) Neck: non-tender, full range of motion Respiratory: lungs clear, normal breath sounds, no respiratory distress, no accessory muscle use Cardiovascular: no murmur, tachycardia Gastrointestinal: normal bowel sounds, non tender, soft Extremities: normal range of motion, non-tender Neurologic/Psychiatric: alert, normal mood/affect, oriented x 3 Skin: normal color, warm/dry Progress/Results/Core Measures Results/Orders Lab Results Laboratory Tests Test 08/18/20 18:50 Range/Units White Blood Count 7.5 4.3-11.0 10^3/uL Red Blood Count 5.14 4.35-5.85 10^6/uL Hemoglobin 15.2 13.3-17.7 G/DL Hematocrit 44 40-54 % Mean Corpuscular Volume 86 80-99 FL Mean Corpuscular Hemoglobin 30 25-34 PG Mean Corpuscular Hemoglobin Concent 35 32-36 G/DL Red Cell Distribution Width 14.1 10.0-14.5 % Platelet Count 337 130-400 10^3/uL Mean Platelet Volume 10.3 7.4-10.4 FL Neutrophils (%) (Auto) 54 42-75 % Lymphocytes (%) (Auto) 24 12-44 % Monocytes (%) (Auto) 16 H 0-12 % Eosinophils (%) (Auto) 5 0-10 % Basophils (%) (Auto) 1 0-10 % Neutrophils # (Auto) 4.1 1.8-7.8 X 10^3 Lymphocytes # (Auto) 1.8 1.0-4.0 X 10^3 Monocytes # (Auto) 1.2 H 0.0-1.0 X 10^3 Eosinophils # (Auto) 0.4 H 0.0-0.3 10^3/uL Basophils # (Auto) 0.1 0.0-0.1 10^3/uL Prothrombin Time 15.1 H 12.2-14.7 SEC INR Comment 1.2 0.8-1.4 Activated Partial Thromboplast Time 35 24-35 SEC Sodium Level 139 135-145 MMOL/L Potassium Level 3.9 3.6-5.0 MMOL/L Chloride Level 103 98-107 MMOL/L Carbon Dioxide Level 27 21-32 MMOL/L Anion Gap 9 5-14 MMOL/L Blood Urea Nitrogen 11 7-18 MG/DL Creatinine 0.99 0.60-1.30 MG/DL Estimat Glomerular Filtration Rate > 60 BUN/Creatinine Ratio 11 Glucose Level 117 H 70-105 MG/DL Calcium Level 9.2 8.5-10.1 MG/DL Corrected Calcium 9.6 8.5-10.1 MG/DL Total Bilirubin 14.0 *H 0.1-1.0 MG/DL Direct Bilirubin 10.4 H 0.0-0.3 MG/DL Indirect Bilirubin 3.6 MG/DL Aspartate Amino Transf (AST/SGOT) 255 H 5-34 U/L Alanine Aminotransferase (ALT/SGPT) 829 H 0-55 U/L Alkaline Phosphatase 222 H 40-136 U/L Total Protein 7.3 6.4-8.2 GM/DL Albumin 3.5 3.2-4.5 GM/DL Lipase 73 8-78 U/L Acetaminophen Level < 10 L 10-30 UG/ML Serum Alcohol 10 <10 MG/DL My Orders Orders - [facility] Cbc With Automated Diff (08/18/20 18:50) Comprehensive Metabolic Panel (08/18/20 18:50) Ua Culture If Indicated (08/18/20 18:50) Drug Screen Stat (Urine) (08/18/20 18:50) Alcohol (08/18/20 18:50) Protime With Inr (08/18/20 18:50) Partial Thromboplastin Time (08/18/20 18:50) Ed Iv/Invasive Line Start (08/18/20 18:50) Bilirubin, Total And Direct (08/18/20 18:50) Chest 1 View, Ap/Pa Only (08/18/20 18:50) Ns Iv 1000 Ml (Sodium Chloride 0.9%) (08/18/20 19:00) Hepatitis Panel Acute (08/18/20 18:53) Ct Abdomen/Pelvis W (08/18/20 19:16) Iohexol Injection (Omnipaque 350 Mg/Ml 1 (08/18/20 19:30) Received Contrast (Hold Metformin- Contr (08/18/20 19:30) Sodium Chloride Flush (Catheter Flush Sy (08/18/20 19:30) Ns (Ivpb) (Sodium Chloride 0.9% Ivpb Bag (08/18/20 19:30) Lipase (08/18/20 19:59) Lactated Ringers (Lr 1000 Ml Iv Solution (08/18/20 21:30) Acetaminophen (08/18/20 21:31) Cmv Igg & Igm Ab (08/18/20 22:18) Hepatitis C Rna By Pcr (08/18/20 22:18) Anti-Nuclear Ab (Elizabeth) Analyzer (08/18/20 22:18) Hannah Kirk Virus Profile (08/18/20 22:18) Medications Given in ED Current Medications Medications Dose Ordered Sig/Jeromy Route Start Time Stop Time Status Last Admin Dose Admin Iohexol 100 ml ONCE ONCE IV 08/18/20 19:30 08/18/20 19:31 DC 08/18/20 19:56 95 ML Sodium Chloride 10 ml NEEDED PRN IV 08/18/20 19:30 08/18/20 19:56 10 ML Sodium Chloride 100 ml ONCE ONCE IV 08/18/20 19:30 20 19:31 DC 08/18/20 19:56 80 ML Vital Signs/I&O 08/18/20 18:40 Temp 37.3 Pulse 121 Resp 20 B/P (MAP) 103/73 (83) Pulse Ox 99 O2 Delivery Room Air Departure Communication (Admissions) 2220-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 Recommend monitoring for encephalopathy which she does not have present currently. I don't have ultrasound available here. He has no pain. No fevers. Normal white count. I do not suspect a biliary stone to cause this. Will order close outpatient follow-up for ultrasound Friday. 2232-Braxton on-call for [facility], she has taken down the patient's name and number and they will call Friday for an appointment for evaluation and to schedule an ultrasound. Discussed this plan with the patient he is agreeable. Heart rate is down to 92, blood pressure 119/80, abdomen is round soft and nontender to palpation. Impression Primary Impression: Elevated liver function tests Disposition: HOME, SELF-CARE Condition: Stable Departure-Patient Inst. Decision time for Depature: 22:32 Referrals: NO,LOCAL PHYSICIAN (PCP/Family) Primary Care Physician Patient Instructions: No Instuctions Given Add. Discharge Instructions: 1. Follow-up with [facility] on Friday to schedule an ultrasound of the liver. Continue to use the nausea medication as directed. If you develop fevers, abdominal pain, confusion or anything that is changing or worsening you should present to the emergency room to have an ultrasound done. We do not have ultrasound available on the weekends. U would need to go to one of the [place] emergency rooms. However if you are unable to get there we could certainly see you here in our emergency room and then transfer you there. In the meantime drink plenty of fluids, avoid all alcohol products, do not use any Tylenol (acetaminophen products). If [facility] has not cold U for an ultrasound time by noon on Friday then show up here in the emergency room before 3:30 PM and I will order it myself. All discharge instructions reviewed with patient and/or family. Voiced understanding. Work/School Note: Work Release Form Date Seen in the Emergency Department: Aug 18, 2020 Return to Work: Aug 22, 2020 Copy Copies To 1: KATIE BUCHANAN DO; JESSICA BLANCA MD, PETER J APRN Aug 18, 2020 18:53
[2020-08-18] MEDS ORDERED: NS IV 1000 ML 1,000 ML IV SCH (19:00)
[2020-08-18 19:04] LABS: BASOPHILS # (AUTO) 0.1 10^3/uL (0.0-0.1); BASOPHILS % (AUTO) 1 % (0-10); EOSINOPHILS # (AUTO) 0.4 10^3/uL (0.0-0.3); EOSINOPHILS % (AUTO) 5 % (0-10); HEMATOCRIT 44 % (40-54); HEMOGLOBIN 15.2 G/DL (13.3-17.7); LYMPHOCYTES # (AUTO) 1.8 X 10^3 (1.0-4.0); LYMPHOCYTES % (AUTO) 24 % (12-44); MEAN CORPUSCULAR HEMOGLOBIN 30 PG (25-34); MEAN CORPUSCULAR HGB CONC 35 G/DL (32-36); MEAN CORPUSCULAR VOLUME 86 FL (80-99); MEAN PLATELET VOLUME 10.3 FL (7.4-10.4); MONOCYTES # (AUTO) 1.2 X 10^3 (0.0-1.0); MONOCYTES % (AUTO) 16 % (0-12); NEUTROPHILS # (AUTO) 4.1 X 10^3 (1.8-7.8); NEUTROPHILS % (AUTO) 54 % (42-75); PLATELET COUNT 337 10^3/uL (130-400); WHITE BLOOD COUNT 7.5 10^3/uL (4.3-11.0)
[2020-08-18 19:22] LABS: INR 1.2 (0.8-1.4); PROTHROMBIN TIME PATIENT 15.1 SEC (12.2-14.7)
[2020-08-18 19:23] LABS: ALBUMIN 3.5 GM/DL (3.2-4.5); CHLORIDE 103 MMOL/L (98-107); POTASSIUM 3.9 MMOL/L (3.6-5.0); SODIUM 139 MMOL/L (135-145)
--- NOTE | 2020-08-18 19:23 | Diagnostic Imaging Report ---
EXAMINATION: Chest radiograph, portable AP view. DATE: 08/18/2020 7:18 PM hours. INDICATION: 25-year-old male, nausea, vomiting. Jaundice. COMPARISON: CT chest, abdomen and pelvis May 06, 2014. FINDINGS: Heart size and mediastinal contours are unremarkable. There is no identified pneumothorax. There is no large pleural effusion. There is no identified focal airspace consolidation. IMPRESSION: No identified acute cardiopulmonary abnormality. Dictated by: Dictated on workstation # [id number]
[2020-08-18 19:24] LABS: CALCIUM 9.2 MG/DL (8.5-10.1)
[2020-08-18 19:25] LABS: GLUCOSE 117 MG/DL (70-105)
[2020-08-18 19:26] LABS: CARBON DIOXIDE 27 MMOL/L (21-32); TOTAL PROTEIN 7.3 GM/DL (6.4-8.2)
[2020-08-18 19:29] LABS: ALKALINE PHOSPHATASE 222 U/L (40-136); CREATININE SERUM 0.99 MG/DL (0.60-1.30); GFR ESTIMATED > 60
[2020-08-18 19:30] LABS: BUN/CREATININE RATIO 11
[2020-08-18] MEDS ORDERED: HOLD METFORMIN - RECEIVED CONTRAST 20 ML VIAL IV SCH (19:30)
[2020-08-18] MEDS ORDERED: NS 100 ML (IVPB) BAG IV ONE (19:30)
[2020-08-18] MEDS ORDERED: CATHETER FLUSH 10 ML SYR IV PRN (19:30)
[2020-08-18] MEDS ORDERED: IOHEXOL 350 MG/ML 100 ML (OMNIPAQUE 350) VIAL IV ONE (19:30)
[2020-08-18 19:31] LABS: BILIRUBIN,DIRECT 10.4 MG/DL (0.0-0.3); BILIRUBIN,INDIRECT 3.6 MG/DL
[2020-08-18 19:32] LABS: ALANINE AMINOTRANSFERASE 829 U/L (0-55)
--- NOTE | 2020-08-18 21:17 | Diagnostic Imaging Report ---
PROCEDURE: CT abdomen and pelvis with contrast. TECHNIQUE: Multiple contiguous axial images were obtained through the abdomen and pelvis after administration of intravenous contrast. Auto Exposure Controls were utilized during the CT exam to meet ALARA standards for radiation dose reduction. DATE: August 18, 2020. COMPARISON: [facility] May 01, 2015. CT abdomen and pelvis May 01, 2015. INDICATION: 25-year-old male, painless jaundice. Nausea and vomiting. Fever. FINDINGS: There is very mild dependent atelectasis in the lung bases. The heart is not enlarged. There is no identified pericardial effusion. The liver is unremarkable in size and contour. There is a 5 mm low-attenuation lesion in the liver on axial image 11 which is too small to characterize. There is no additional identified liver lesion. The main, right and left portal veins are patent. The gallbladder is contracted. There is no biliary ductal dilation. The main pancreatic duct is not abnormally dilated. Unremarkable appearance of the pancreatic parenchyma. The spleen is normal in size. The adrenal glands are unremarkable. There is moderate right hydronephrosis. There is no identified right renal or ureteral stone. There is no left hydronephrosis. There is no identified left renal or ureteral stone. The urinary bladder is unremarkable in appearance. The intestinal tract is not distended. The appendix is unremarkable and well seen on axial image 65. There is no free intraperitoneal air. There is no drainable fluid collection. There is no free pelvic fluid. There is no identified abnormally enlarged lymph node in the abdomen or pelvis which meets CT size criteria for adenopathy. There is no identified acute bony abnormality. IMPRESSION: CT abdomen and pelvis: 1. Moderate right hydronephrosis without identified causative etiology. This potentially could relate to a UPJ obstruction. 2. 5 mm low-attenuation lesion in the liver which is too small to characterize. This is very likely benign as it is stable since May 01, 2015. Additional CT assessment of the liver is unremarkable. Dictated by: Dictated on workstation # [id number]
[2020-08-18] MEDS ORDERED: LACTATED RINGERS 1,000 ML IV SCH (21:30)
[2020-08-18 22:50] VITALS: BP 112/76
[2020-08-21 15:35] LABS: HEPATITIS C ANTIBODY C Non-Reactive (Non-Reactive)
== END 2020-08-18 22:54 | disposition home or self-care (01) ==
LOC: EDUNIT# 18:20 → ER 18:21
DX: R94.5 Abnormal results of liver function studies (principal); Z87.820 Personal history of traumatic brain injury
CPT/HCPCS: 71045; 74177; 80053; 80074; 82247; 82248; 83690; 85025; 85610; 85730; 86038; 86644; 86645; 86663; 86664; 86665 ×2; 87522; 99284; G0480 ×2; 36415; 80320; 80329

== ENCOUNTER → 2020-08-21 | Outpatient (CLI) | payer SELFPAY ==
--- NOTE | 2020-08-21 15:32 | Diagnostic Imaging Report ---
PROCEDURE: US Gallbladder. TECHNIQUE: Multiple real-time grayscale images were obtained over the right upper quadrant in various projections. INDICATION: Elevated bilirubin. FINDINGS: The liver is normal in size at 15 cm. No discrete liver mass is detected. The portal vein is patent and shows normal direction of flow. The gallbladder is severely contracted. There is an echogenic focus within the gallbladder which may represent a stone. No biliary ductal dilatation is seen. Pancreas is poorly visualized due to overlying bowel gas. Visualized aorta is non-aneurysmal. IVC is patent. Right kidney does show moderate hydronephrosis. No calculi are seen. IMPRESSION: 1. Contracted gallbladder, limiting evaluation. There does appear to be a small stone present. 2. Moderate right-sided hydronephrosis. Dictated by: Dictated on workstation # [id number]
== END ==
LOC: RAD 14:28
PROVIDERS: ATTEND Nurse Practitioner Family
DX: N13.30 Unspecified hydronephrosis (principal); E80.7 Disorder of bilirubin metabolism, unspecified; K82.8 Other specified diseases of gallbladder
CPT/HCPCS: 76705

== ENCOUNTER 2021-06-10 22:50 | Emergency (ER) | payer SELFPAY ==
[~2021-06-10 22:50] MED LIST changes: -OMEP40CA27 PO; +OMEP40CA6 PO; -SULF1TAB35 PO; +SULF1TAB38 PO
[2021-06-10 23:09] LABS: BASOPHILS # (AUTO) 0.1 10^3/uL (0.0-0.1); BASOPHILS % (AUTO) 1 % (0-10); EOSINOPHILS # (AUTO) 0.5 10^3/uL (0.0-0.3); EOSINOPHILS % (AUTO) 4 % (0-10); HEMATOCRIT 40 % (40-54); HEMOGLOBIN 13.8 g/dL (13.3-17.7); LYMPHOCYTES # (AUTO) 3.5 10^3/uL (1.0-4.0); LYMPHOCYTES % (AUTO) 29 % (12-44); MEAN CORPUSCULAR HEMOGLOBIN 31 pg (25-34); MEAN CORPUSCULAR HGB CONC 34 g/dL (32-36); MEAN CORPUSCULAR VOLUME 91 fL (80-99); MEAN PLATELET VOLUME 10.2 fL (9.0-12.2); MONOCYTES # (AUTO) 1.3 10^3/uL (0.0-1.0); MONOCYTES % (AUTO) 11 % (0-12); NEUTROPHILS # (AUTO) 6.6 10^3/uL (1.8-7.8); NEUTROPHILS % (AUTO) 55 % (42-75); PLATELET COUNT 336 10^3/uL (130-400); WHITE BLOOD COUNT 11.9 10^3/uL (4.3-11.0)
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
[2021-06-10] MEDS ORDERED: TETANUS,DIPTH,PERTUSS P/F (BOOSTRIX) 0.5 ML VIAL IM ONE (23:15)
[2021-06-10] MEDS ORDERED: NS IV 1000 ML 1,000 ML IV SCH (23:15)
[2021-06-10] MEDS ORDERED: fentaNYL INJ 100 MCG/2 ML AMP IVP ONE (23:15)
[2021-06-10 23:17] LABS: CHLORIDE 107 MMOL/L (98-107); SODIUM 146 MMOL/L (135-145)
[2021-06-10 23:18] LABS: CALCIUM 8.9 MG/DL (8.5-10.1)
[2021-06-10 23:19] LABS: GLUCOSE 121 MG/DL (70-105); TOTAL PROTEIN 7.1 GM/DL (6.4-8.2)
[2021-06-10 23:20] LABS: CARBON DIOXIDE 21 MMOL/L (21-32)
[2021-06-10 23:21] LABS: BILIRUBIN,TOTAL 0.6 MG/DL (0.1-1.0)
[2021-06-10 23:23] LABS: ALKALINE PHOSPHATASE 111 U/L (40-136); CREATININE SERUM 0.83 MG/DL (0.60-1.30); GFR ESTIMATED > 60
[2021-06-10 23:24] LABS: BUN/CREATININE RATIO 16
[2021-06-10 23:26] LABS: ALANINE AMINOTRANSFERASE 23 U/L (0-55)
[2021-06-11] MEDS ORDERED: ONDANSETRON 4 MG/2 ML (SDV) Z0FRAN ONE (00:19)
[2021-06-11] MEDS ORDERED: ONDANSETRON 4 MG/2 ML (SDV) Z0FRAN IVP ONE (00:30)
[2021-06-11] MEDS ORDERED: ceFAZolin INJECTION 1,000 MG ONE (01:24)
[2021-06-11 01:32] VITALS: BP 138/83
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
== END 2021-06-11 01:32 | disposition short-term general hospital (02) ==
LOC: EDUNIT# 22:50 → ER 22:51
DX: S02.91XA Unspecified fracture of skull, initial encounter for closed fracture (principal); S06.5X0A Traumatic subdural hemorrhage without loss of consciousness, initial encounter; S01.01XA Laceration without foreign body of scalp, initial encounter; Z23 Encounter for immunization; Z87.820 Personal history of traumatic brain injury; W21.11XA Struck by baseball bat, initial encounter
CPT/HCPCS: 70450; 70486; 71045; 72125; 80053; 85025; 90471; 96361; 96374; 96375; 99285; G0480; 36415; 80320; 90715

== ENCOUNTER 2023-05-16 04:47 | Emergency (ER) | payer SELFPAY ==
[~2023-05-16] VITALS: Ht 182.9 cm; Wt 113.0 kg
[2023-05-16] MEDS ORDERED: TETANUS,DIPTH,PERTUSS P/F (BOOSTRIX) 0.5 ML VIAL IM ONE (05:00)
[2023-05-16] MEDS ORDERED: NS IV 1000 ML 1,000 ML IV SCH (05:00)
[2023-05-16 05:06] LABS: BASOPHILS # (AUTO) 0.1 10^3/uL (0.0-0.1); BASOPHILS % (AUTO) 1 % (0-10); EOSINOPHILS # (AUTO) 0.4 10^3/uL (0.0-0.3); EOSINOPHILS % (AUTO) 5 % (0-10); HEMATOCRIT 43 % (40-54); LYMPHOCYTES # (AUTO) 2.3 10^3/uL (1.0-4.0); LYMPHOCYTES % (AUTO) 30 % (12-44); MEAN CORPUSCULAR HEMOGLOBIN 32 pg (25-34); MEAN CORPUSCULAR HGB CONC 35 g/dL (32-36); MEAN CORPUSCULAR VOLUME 91 fL (80-99); MEAN PLATELET VOLUME 10.2 fL (9.0-12.2); MONOCYTES % (AUTO) 14 % (0-12); NEUTROPHILS # (AUTO) 3.7 10^3/uL (1.8-7.8); NEUTROPHILS % (AUTO) 49 % (42-75); PLATELET COUNT 257 10^3/uL (130-400); WHITE BLOOD COUNT 7.6 10^3/uL (4.3-11.0)
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
[2023-05-16 05:13] LABS: ALBUMIN 4.1 GM/DL (3.2-4.5); CHLORIDE 106 MMOL/L (98-107); POTASSIUM 3.2 MMOL/L (3.6-5.0); SODIUM 141 MMOL/L (135-145)
[2023-05-16 05:14] LABS: AMYLASE 46 U/L (25-125); CALCIUM 9.1 MG/DL (8.5-10.1)
[2023-05-16 05:15] LABS: GLUCOSE 116 MG/DL (70-105)
[2023-05-16 05:16] LABS: CARBON DIOXIDE 23 MMOL/L (21-32); TOTAL PROTEIN 7.2 GM/DL (6.4-8.2)
[2023-05-16 05:17] LABS: INR 1.2 (0.8-1.4); PROTHROMBIN TIME PATIENT 14.9 SEC (12.2-14.7)
[2023-05-16 05:19] LABS: ALKALINE PHOSPHATASE 93 U/L (40-136); CREATININE SERUM 0.89 MG/DL (0.60-1.30); GFR ESTIMATED 118
[2023-05-16 05:20] LABS: BUN/CREATININE RATIO 11
[2023-05-16 05:22] LABS: ALANINE AMINOTRANSFERASE 39 U/L (0-55)
[2023-05-16 05:23] LABS: LIPASE 35 U/L (8-78)
[2023-05-16 05:36] LABS: ACETAMINOPHEN < 10 UG/ML (10-30)
[2023-05-16 05:55] LABS: BILIRUBIN,URINE NEGATIVE (NEGATIVE); CLARITY,URINE CLEAR; COLOR,URINE YELLOW; GLUCOSE, URINE (UA) NEGATIVE (NEGATIVE); KETONES,URINE NEGATIVE (NEGATIVE); LEUKOCYTE ESTERASE ,URINE NEGATIVE (NEGATIVE); NITRITE,URINE NEGATIVE (NEGATIVE); PROTEIN,URINE NEGATIVE (NEGATIVE)
[2023-05-16] MEDS ORDERED: NS 100 ML (IVPB) BAG IV ONE (06:00)
[2023-05-16] MEDS ORDERED: IOHEXOL 350 MG/ML 100 ML (OMNIPAQUE 350) VIAL IV ONE (06:00)
[2023-05-16] MEDS ORDERED: HOLD METFORMIN - RECEIVED CONTRAST 20 ML VIAL IV SCH (06:00)
[2023-05-16] MEDS ORDERED: CATHETER FLUSH 10 ML SYR IV PRN (06:00)
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
[2023-05-16 06:05] LABS: BACTERIA,URINE NEGATIVE /HPF
[2023-05-16 06:09] LABS: AMPHETAMINE SCREEN, URINE NEGATIVE (NEGATIVE); BARBITURATE SCREEN URINE NEGATIVE (NEGATIVE); BENZODIAZEPINES SCREEN URINE NEGATIVE (NEGATIVE); CANNABINOID SCREEN, URINE NEGATIVE (NEGATIVE); COCAINE SCREEN URINE NEGATIVE (NEGATIVE); METHADONE STAT NEGATIVE (NEGATIVE); OPIATE SCREEN URINE NEGATIVE (NEGATIVE); OXYCODONE STAT NEGATIVE (NEGATIVE); PROPOXYPHENE STAT NEGATIVE (NEGATIVE); TRICYCLIC ANTIDEPRESSANTS SCRE NEGATIVE (NEGATIVE)
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
[2023-05-16 09:40] VITALS: BP 115/76
== END 2023-05-16 09:56 | disposition home or self-care (01) ==
LOC: ER 04:47
DX: S01.82XA Laceration with foreign body of other part of head, initial encounter (principal); F10.129 Alcohol abuse with intoxication, unspecified; F17.210 Nicotine dependence, cigarettes, uncomplicated; Z23 Encounter for immunization; Z28.310 Unvaccinated for COVID-19; V43.52XA Car driver injured in collision with other type car in traffic accident, initial encounter; Y92.410 Unspecified street and highway as the place of occurrence of the external cause
CPT/HCPCS: 70450; 70486; 71045; 71260; 72125; 72128; 72131; 74177; 80053; 80306; 81000; 82150; 83690; 83735; 84484; 85025; 85610; 85730; 93005; 93041; 99284; G0480 ×2; 36415; 80320; 80329; 90715

== ENCOUNTER 2023-07-14 00:05 | Emergency (ER) | payer SELFPAY ==
[~2023-07-14] VITALS: Ht 189 cm; Wt 115.0 kg
[2023-07-14] MEDS ORDERED: LACTATED RINGERS 1,000 ML IV ONE (00:30)
[2023-07-14] MEDS ORDERED: ONDANSETRON 4 MG/2 ML (SDV) Z0FRAN IVP ONE (00:30)
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
[2023-07-14 01:00] LABS: BASOPHILS # (AUTO) 0.1 10^3/uL (0.0-0.1); BASOPHILS % (AUTO) 1 % (0-10); EOSINOPHILS # (AUTO) 0.1 10^3/uL (0.0-0.3); EOSINOPHILS % (AUTO) 1 % (0-10); HEMATOCRIT 42 % (40-54); HEMOGLOBIN 14.5 g/dL (13.3-17.7); LYMPHOCYTES # (AUTO) 1.2 10^3/uL (1.0-4.0); LYMPHOCYTES % (AUTO) 11 % (12-44); MEAN CORPUSCULAR HEMOGLOBIN 31 pg (25-34); MEAN CORPUSCULAR HGB CONC 34 g/dL (32-36); MEAN CORPUSCULAR VOLUME 92 fL (80-99); MEAN PLATELET VOLUME 10.2 fL (9.0-12.2); MONOCYTES # (AUTO) 0.9 10^3/uL (0.0-1.0); MONOCYTES % (AUTO) 8 % (0-12); NEUTROPHILS # (AUTO) 9.1 10^3/uL (1.8-7.8); NEUTROPHILS % (AUTO) 79 % (42-75); PLATELET COUNT 260 10^3/uL (130-400); WHITE BLOOD COUNT 11.5 10^3/uL (4.3-11.0)
[2023-07-14 01:11] LABS: CHLORIDE 107 MMOL/L (98-107); POTASSIUM 3.8 MMOL/L (3.6-5.0); SODIUM 141 MMOL/L (135-145)
[2023-07-14 01:12] LABS: AMYLASE 55 U/L (25-125); CALCIUM 9.2 MG/DL (8.5-10.1)
[2023-07-14 01:14] LABS: GLUCOSE 117 MG/DL (70-105); TOTAL PROTEIN 7.4 GM/DL (6.4-8.2)
[2023-07-14 01:15] LABS: CARBON DIOXIDE 24 MMOL/L (21-32)
[2023-07-14 01:16] LABS: BILIRUBIN,TOTAL 0.9 MG/DL (0.1-1.0)
[2023-07-14 01:17] LABS: ALKALINE PHOSPHATASE 83 U/L (40-136); CREATININE SERUM 0.82 MG/DL (0.60-1.30); GFR ESTIMATED 121
[2023-07-14 01:18] LABS: BUN/CREATININE RATIO 12
[2023-07-14 01:20] LABS: ALANINE AMINOTRANSFERASE 27 U/L (0-55); MAGNESIUM 1.8 MG/DL (1.6-2.4)
[2023-07-14 01:21] LABS: LIPASE 32 U/L (8-78)
[2023-07-14 02:01] LABS: AMORPHOUS SEDIMENT,UR MOD AMOR PHOSPHATE /LPF; BACTERIA,URINE TRACE /HPF; BILIRUBIN,URINE NEGATIVE (NEGATIVE); CLARITY,URINE CLEAR; COLOR,URINE YELLOW; GLUCOSE, URINE (UA) NEGATIVE (NEGATIVE); KETONES,URINE NEGATIVE (NEGATIVE); LEUKOCYTE ESTERASE ,URINE TRACE (NEGATIVE); NITRITE,URINE NEGATIVE (NEGATIVE); PH,URINE 8.5 (5-9); PROTEIN,URINE NEGATIVE (NEGATIVE); WBC,URINE 0-2 /HPF
[2023-07-14 02:02] LABS: GRANULAR CASTS,URINE RARE /LPF
[2023-07-14] MEDS ORDERED: RX-ONDANSETRON 4 MG ODT (ZOFRAN) PPK #4 PO STA (02:10)
[2023-07-14] MEDS ORDERED: ONDA8TAB13 PO (02:13)
[2023-07-14] MEDS ORDERED: PANT40TA2 PO (02:13)
[2023-07-14 02:15] LABS: AMPHETAMINE SCREEN, URINE NEGATIVE (NEGATIVE); BARBITURATE SCREEN URINE NEGATIVE (NEGATIVE); BENZODIAZEPINES SCREEN URINE NEGATIVE (NEGATIVE); CANNABINOID SCREEN, URINE NEGATIVE (NEGATIVE); COCAINE SCREEN URINE NEGATIVE (NEGATIVE); METHADONE STAT NEGATIVE (NEGATIVE); OPIATE SCREEN URINE NEGATIVE (NEGATIVE); OXYCODONE STAT NEGATIVE (NEGATIVE); PROPOXYPHENE STAT NEGATIVE (NEGATIVE); TRICYCLIC ANTIDEPRESSANTS SCRE NEGATIVE (NEGATIVE)
[2023-07-14] MEDS ORDERED: PANTOPRAZOLE 40 MG (PROTONIX) TAB PO ONE (02:15)
[2023-07-14 02:50] VITALS: BP 114/63
== END 2023-07-14 02:56 | disposition home or self-care (01) ==
LOC: EDUNIT# 00:05 → ER 00:09
DX: R11.2 Nausea with vomiting, unspecified (principal); F17.210 Nicotine dependence, cigarettes, uncomplicated; Z20.822 Contact with and (suspected) exposure to COVID-19; Z28.311 Partially vaccinated for COVID-19
CPT/HCPCS: 80053; 80306; 81000; 82150; 83690; 83735; 85025; 87636; 93041; G0480; 36415; 80320